=== PATIENT | female | born 1990 | race Caucasian/White ===

== ENCOUNTER 2019-01-23 19:38 | Emergency (ER) | payer MEDICAID ==
[2019-01-23 20:24] VITALS: BP 106/40
[2019-01-23] MEDS ORDERED: Ibuprofen TAB* 400 MG PO ONE (20:41)
[2019-01-23] MEDS ORDERED: Sulfamethox/Trimethoprim DS 800/160* TAB PO ONE (22:00)
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
--- NOTE | 2019-01-24 12:18 | UC ---
- Progress Note Progress Note: Radiologist reading of x-rays from January 23, 2019 comes back. C-spine face x-rays and right rib with chest x-ray were all no fractures. Her marketing developer final diagnoses did not mention any fractures therefore there is no discrepancy. Course/Dx - Diagnoses Provider Diagnoses: Cellulitis of both earlobes, Contusion of rib on right side, Facial hematoma Discharge - Sign-Out/Discharge Documenting (check all that apply): Patient Departure All imaging exams completed and their final reports reviewed: Yes - Discharge Plan Condition: Stable Disposition: HOME Prescriptions: Ibuprofen TAB* [Motrin TAB* 800 MG] 800 mg PO Q6H PRN #30 tab PRN Reason: Pain Sulfamethox/Trimethoprim DS* [Bactrim DS 800/160 TAB*] 1 tab PO BID #19 tab Patient Education Materials: Cellulitis (ED), Rib Contusion (ED) Referrals: [facility] [place] [facility] [Outside] - 3 Days [facility], [MD - TESTING] - Additional Instructions: 1-Please take ibuprofen PO q6-8hrs prn as instructed after meals to alleviate pain and swelling. rest and avoid strenuous exercise or heavy lifting 2-Please use the Incentive Spirometry as the Nurse explained to improve lung function 3-If symptoms do not improve or worsen please f/u w/ your PCP in 3 days for further evaluation and treatment. 4-Please take Bactrim PO as directed to alleviate b/L ear lobe cellulitis, If redness and swelling doubles in size and you develop fever after 48 hrs of taking antibiotic please go to the ER immediately. - Billing Disposition and Condition Condition: STABLE Disposition: Home
--- NOTE | 2019-01-24 13:09 | UC ---
- Progress Note Progress Note: . Course/Dx - Diagnoses Provider Diagnoses: Cellulitis of both earlobes, Contusion of rib on right side, Facial hematoma Discharge - Sign-Out/Discharge Documenting (check all that apply): Patient Departure All imaging exams completed and their final reports reviewed: Yes - Discharge Plan Condition: Stable Disposition: HOME Prescriptions: Ibuprofen TAB* [Motrin TAB* 800 MG] 800 mg PO Q6H PRN #30 tab PRN Reason: Pain Sulfamethox/Trimethoprim DS* [Bactrim DS 800/160 TAB*] 1 tab PO BID #19 tab Patient Education Materials: Cellulitis (ED), Rib Contusion (ED) Referrals: [facility] [place] [facility] [Outside] - 3 Days [facility], [[facility] - TESTING] - Additional Instructions: 1-Please take ibuprofen PO q6-8hrs prn as instructed after meals to alleviate pain and swelling. rest and avoid strenuous exercise or heavy lifting 2-Please use the Incentive Spirometry as the Nurse explained to improve lung function 3-If symptoms do not improve or worsen please f/u w/ your PCP in 3 days for further evaluation and treatment. 4-Please take Bactrim PO as directed to alleviate b/L ear lobe cellulitis, If redness and swelling doubles in size and you develop fever after 48 hrs of taking antibiotic please go to the ER immediately. - Billing Disposition and Condition Condition: STABLE Disposition: Home
== END 2019-01-23 22:14 | disposition home or self-care (01) ==
LOC: UCEAST 19:38
DX: H60.13 Cellulitis of external ear, bilateral (principal); S20.20XA Contusion of thorax, unspecified, initial encounter; S00.83XA Contusion of other part of head, initial encounter; X58.XXXA Exposure to other specified factors, initial encounter; Y92.9 Unspecified place or not applicable; F17.210 Nicotine dependence, cigarettes, uncomplicated
CPT/HCPCS: 70140; 72050; 99213; A9270-GY; G0463

== ENCOUNTER 2019-11-03 00:22 | Emergency (ER) | payer OTHER ==
[2019-11-03 00:27] VITALS: BP 139/84
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
[2019-11-03] MEDS ORDERED: Acyclovir* 400 MG TAB PO ONE (02:20)
== END 2019-11-03 02:36 | disposition home or self-care (01) ==
LOC: ED 00:22
DX: B00.1 Herpesviral vesicular dermatitis (principal); F17.210 Nicotine dependence, cigarettes, uncomplicated
CPT/HCPCS: 99282; A9270-GY

== ENCOUNTER 2019-11-27 11:21 | Emergency (ER) | payer OTHER ==
[2019-11-27] MEDS ORDERED: Lidocaine 1% MPF ** 5 ML VIAL IM ONE (11:48)
[2019-11-27] MEDS ORDERED: cefTRIAXone VIAL(*) 250 MG VIAL IM ONE (11:48)
[2019-11-27] MEDS ORDERED: Ondansetron ODT TAB* 4 MG PO ONE (11:49)
[2019-11-27] MEDS ORDERED: Azithromycin TAB* 250 MG PO ONE (11:49)
[2019-11-27] MEDS ORDERED: Clindamycin CAP* 150 MG PO ONE (11:50)
--- NOTE | 2019-11-27 11:50 | ED ---
Skin Complaint - HPI Summary HPI Summary: 29 y/o F presenting to [facility] c/o 05/17 R wrist pain and R wrist swelling starting 3-4 days ago after she was injecting heroin into her R wrist and missed her vein. She denies fever. Similar has happened before on her R thumb after poking her thumb with a needle but it resolved on its own and was not this severe. She denies PMHx, surgical hx, Fhx. She may have been exposed to chlamydia but she isn't sure per nurse. Medications reviewed. - History of Current Complaint Chief Complaint: EDRashSkinAbscess Time Seen by Provider: 11/27/19 11:39 Stated Complaint: RIGHT WRIST INJURY PER PT Hx Obtained From: Patient Onset/Duration: Started Days Ago - 3-4, Still Present Skin Exposure Onset/Duration: Days Ago - 3-4 Timing: Constant Current Severity: Severe Pain Intensity: 10 Pain Scale Used: 0-10 Numeric Skin Location: Other: - R wrist Aggravating Symptom(s): Nothing Alleviating Symptom(s): Nothing Associated Signs & Symptoms: Negative - fever - Allergy/Home Medications Allergies/Adverse Reactions: Allergies Allergy/AdvReac Type Severity Reaction Status Date / Time No Known Allergies Allergy Verified 11/03/19 00:27 Home Medications: Home Medications clindamycin HCL [Clindamycin HCl] 450 mg PO TID 7 Days #63 capsule 11/27/19 [Rx] PMH/Surg Hx/FS Hx/Imm Hx Endocrine/Hematology History: Denies: Hx Diabetes, Hx Thyroid Disease Cardiovascular History: Denies: Hx Hypertension Respiratory History: Denies: Hx Asthma, Hx Chronic Obstructive Pulmonary Disease (COPD) Psychiatric History: Reports: Hx Substance Abuse - Surgical History Surgical History: Yes Surgery Procedure, Year, and Place: jaw surgery r/t dislocation 2007 Infectious Disease History: No Infectious Disease History: Denies: Hx Hepatitis, Hx Human Immunodeficiency Virus (HIV), Traveled Outside the [place] in Last 30 Days - Family History Known Family History: Negative: Cardiac Disease, Hypertension, Diabetes Family History: She denies FHx - Social History Alcohol Use: None Hx Substance Use: Yes Substance Use Type: Reports: Heroin, Marijuana Hx Tobacco Use: Yes Smoking Status (MU): Heavy Every Day Tobacco Smoker Review of Systems Negative: Fever Positive: Other - R wrist pain and R wrist swelling All Other Systems Reviewed And Are Negative: Yes Physical Exam - Summary Physical Exam Summary: Constitutional: Well-developed, Well-nourished, Alert. (-) Distressed Skin: Warm, Dry; multiple track quiñones to the hands and wrists HENT: Normocephalic; Atraumatic Eyes: Conjunctiva normal Neck: Musculoskeletal ROM normal neck. (-) JVD, (-) Stridor, (-) Nuchal rigidity Cardio: Rhythm regular, rate normal, Heart sounds normal; Intact distal pulses; Radial pulses are 2+ and symmetric. (-) Murmur Pulmonary/Chest wall: Effort normal. (-) Respiratory distress, (-) Wheezes, (-) Rales Abd: Soft, (-) tenderness, (-) Distension, (-) Guarding, (-) Rebound Musculoskeletal: 2-cm x 3-cm area of fluctuance to the ventral R wrist with surrounding erythema Lymph: (-) Cervical adenopathy Neuro: Alert, Oriented x3 Psych: Mood and affect Normal Triage Information Reviewed: Yes Vital Signs On Initial Exam: Initial Vitals Temp Pulse Resp BP Pulse Ox 97.2 F 88 18 112/60 97 11/27/19 11:23 11/27/19 11:23 11/27/19 11:23 11/27/19 11:23 11/27/19 11:23 Vital Signs Reviewed: Yes Procedures - Sedation Patient Received Moderate/Deep Sedation with Procedure: No - Incision and Drainage Right Wrist Ventral Site: Cleaned. 1 incision. Linear. 1% lidocaine. 3 cc. Diagnostics - Vital Signs Vital Signs Temp Pulse Resp BP Pulse Ox 11/27/19 11:23 97.2 F 88 18 112/60 97 - Laboratory Lab Statement: Any lab studies that have been ordered have been reviewed, and results considered in the medical decision making process. Course/Dx - Course Course Of Treatment: 29 y/o F p/w R wrist abscess in setting of IVDU. - I&D performed w purulent drainage. Given clindamycin. Covered for possible exposure to STDs w ceftriaxone and azithro. - Diagnoses Provider Diagnoses: Abscess, Screening for STD (sexually transmitted disease) - Critical Care Time Critical Care Statement: Critical care time is provided exclusive of any time spent performing procedures. Discharge ED - Sign-Out/Discharge Documenting (check all that apply): Patient Departure - Discharge Plan Condition: Stable Disposition: HOME Prescriptions: clindamycin HCL [Clindamycin HCl] 450 mg PO TID 7 Days #63 capsule Patient Education Materials: Abscess Incision and Drainage (DC) Referrals: [facility] [Outside] Additional Instructions: You were seen in the emergency department for an abscess. Please take clindamycin for one week (antibiotic. We treated you for exposure to gonorrhea and chlamydia. Please follow up with your primary care doctor in next 2-3 days and return to emergency department for fevers, worsening redness, or concerning symptoms. It was a pleasure taking care of you today. - Billing Disposition and Condition Condition: STABLE Disposition: Home - Attestation Statements Document Initiated by Sheila: Yes Documenting Scribe: Herminia Curtis Provider For Whom Sheila is Documenting (Include Credential): Cj Leahy MD Scribe Attestation: Herminia Ray, scribed for Cj Leahy MD on 11/27/19 at 1250. Scribe Documentation Reviewed: Yes Provider Attestation: The documentation as recorded by the Herminia barrientos accurately reflects the service I personally performed and the decisions made by Cj narvaez MD Status of Scrjessee Document: Viewed
[2019-11-27] MEDS ORDERED: Lidocaine 2.5%/Prilocain 2.5%* 5 GM TUBE TOPICAL SCH (12:00)
[2019-11-27 13:27] VITALS: BP 147/110
== END 2019-11-27 13:26 | disposition home or self-care (01) ==
LOC: ED 11:21
DX: Z11.3 Encounter for screening for infections with a predominantly sexual mode of transmission (principal); L02.413 Cutaneous abscess of right upper limb; M25.531 Pain in right wrist; R60.9 Edema, unspecified; F17.210 Nicotine dependence, cigarettes, uncomplicated
CPT/HCPCS: 10060; 96372; 99282; A9270-GY; J0696

== ENCOUNTER → 2019-12-06 | Emergency (ER) | payer OTHER ==
[2019-12-06 22:49] VITALS: BP 127/78
== END | disposition home or self-care (01) ==
LOC: ED 07:25

== ENCOUNTER 2022-04-15 20:27 | Inpatient (IN) ==
[2022-04-15 22:51] LABS: ABS Eosinophils 0.2 10^3/ul (0-0.6); ABS Lymphocytes 3.7 10^3/ul (1.0-4.8); ABS Monocytes 0.8 10^3/ul (0-0.8); Eosinophil % 1.7 %; Hematocrit 38 % (35-47); Hemoglobin 12.5 g/dL (12.0-16.0); Lymphocyte % 34.5 %; Mean Corpuscular HGB Conc 33 g/dL (31-36); Mean Corpuscular Hemoglobin 29 pg (27-31); Mean Corpuscular Volume 87 fL (80-97); Mean Platelet Volume 8.8 fL (7.4-10.4); Platelet Count 202 10^3/uL (150-450); Red Blood Count 4.39 10^6 /uL (3.70-4.87); Red Cell Distribution Width 15 % (10-15); White Blood Count 10.8 10^3/uL (3.5-10.8)
[2022-04-15 22:59] LABS: Urine Benzodiazepine Screen None Detected (None Detect); Urine Cannabinoids Screen None Detected (None Detect); Urine Opiates Screen None Detected (None Detect)
[2022-04-15 23:07] LABS: Urine Appearance Clear; Urine Bilirubin Negative (Negative); Urine Blood Negative (Negative); Urine Color Yellow; Urine Glucose Negative (Negative); Urine Ketones Negative (Negative); Urine Nitrite Negative (Negative); Urine Protein Negative (Negative); Urine Specific Gravity 1.025 (1.005-1.030); Urine Urobilinogen 0.2 (Negative) (Negative)
[2022-04-15 23:09] LABS: ALT 12 U/L (7-52); AST 16 U/L (13-39); Albumin 4.3 g/dL (3.2-5.2); Albumin/Globulin Ratio 1.7 (1-3); Alcohol, S < 13 mg/dL (<13); Alkaline Phosphatase 40 U/L (35-149); Anion Gap 4 mmol/L (2-11); Blood Urea Nitrogen 10 mg/dL (6-24); CO2 Carbon Dioxide 27 mmol/L (22-32); Calcium 9.3 mg/dL (8.6-10.3); Chloride 107 mmol/L (101-111); Globulin 2.6 g/dL (2-4); Glucose 92 mg/dL (70-100); Potassium 3.9 mmol/L (3.5-5.0); Salicylate < 2.50 mg/dL (<30); Sodium 138 mmol/L (135-145); Total Protein 6.9 g/dL (6.4-8.9); eGFR CKD-EPI 96.6 (>60)
[2022-04-15 23:13] LABS: Acetaminophen < 15 mcg/mL
[2022-04-15 23:22] LABS: TSH Ultra Thyroid Stim Horm 1.25 mcIU/mL (0.34-5.60)
[2022-04-16] MEDS ORDERED: Al Hydrox/Mg Hydrox/Simet LIQ 30 ML UDC PO PRN (05:20)
[2022-04-16] MEDS ORDERED: Nicotine GUM 2MG FRUIT FLAVOR PO PRN (06:00)
[2022-04-16] MEDS: Vitamin THERAPEUTIC TAB PO SCH (10:29)
[2022-04-16] MEDS ORDERED: OLANZapine 5 mg TAB *ODT PO PRN (14:28)
[2022-04-16] MEDS: OLANZapine 10 mg TAB*ODT PO SCH (20:35)
[2022-04-17] MEDS: Vitamin THERAPEUTIC TAB PO SCH (10:30)
[2022-04-17] MEDS: OLANZapine 10 mg TAB*ODT PO SCH (20:27)
[2022-04-18] MEDS: OLANZapine 10 mg TAB*ODT PO SCH (21:01)
[2022-04-19 08:27] LABS: HDL Cholesterol 52.2 mg/dL
[2022-04-19] MEDS ORDERED: OLANZapine 5 mg TAB *ODT PO PRN (19:19)
[2022-04-19] MEDS: OLANZapine 10 mg TAB*ODT PO SCH (20:16)
[2022-04-20] MEDS ORDERED: Influenza vaccine *QUAD* *2022-23* 0.5 ML SYRINGE IM ONE (09:00)
[2022-04-20] MEDS: OLANZapine 10 mg TAB*ODT PO SCH (21:53)
[2022-04-22 19:50] VITALS: BP 131/72
== END 2022-04-23 11:00 | disposition home or self-care (01) | DRG 750 ==
LOC: ED 20:27 → BSU 04-16 03:25
PROVIDERS: ADMIT Psychiatry & Neurology Psychiatry; ATTEND Psychiatry & Neurology Psychiatry